=== PATIENT | male | born 1990 | race Two or more races ===

== ENCOUNTER 2024-06-23 16:40 | Emergency (ER) | payer OTHER ==
[~2024-06-23] VITALS: Ht 180.3 cm; Wt 97.2 kg
--- NOTE | 2024-06-23 17:28 | ED.PDOC ---
HPI Comments 34-year-old male with no pertinent past medical history, presents to ED for dog bites x1 hour ago with no other associated symptoms. Patient reports that he was breaking a fight between his two dogs and he got bit on his right wrist as well as his right posterior leg. Patient denies any numbness or tingling. He denies any fever, chills, nausea, vomiting. He currently rates his pain as 6/10 in severity. No alleviating or aggravating factors. He states that his last tetanus was within 10 years. His dog is up-to-date with all vaccinations. Chief Complaint: Laceration Time Seen by MD: 16:43 Primary Care Provider: NONE Reviewed Notes: Nurses Notes, Medications, Allergies Allergies: Coded Allergies: NO KNOWN ALLERGIES (Unverified , 06/23/24) Mode of Arrival: Ambulatory Complexity: Simple Laceration Length (cm): 2 Skin Type: Linear Past Medical History PAST MEDICAL HISTORY: Denies Surgical History: Denies all surgeries Family History Family History: Reviewed,noncontributory to illness Social History Smoker: Non-Smoker Alcohol: Denies ETOH Use Drugs: Denies Drug Use Constitutional: denies: chills, diaphoresis, fatigue, fever, malaise, sweats, weakness, others EENTM: denies: blurred vision, double vision, ear bleeding, ear discharge, ear drainage, ear pain, ear ringing, eye pain, eye redness, hearing loss, mouth pain, mouth swelling, nasal discharge, nose bleeding, nose congestion, nose pain, photophobia, tearing, throat pain, throat swelling, voice changes, others Respiratory: denies: cough, hemoptysis, orthopnea, SOB at rest, shortness of breath, SOB with excertion, stridor, wheezing, others Cardiovascular: denies: chest pain, dizzy spells, diaphoresis, Dyspnea on exertion, edema, irregular heart beat, left arm pain, lightheadedness, palpitations, PND, syncope, others Gastrointestinal: denies: abdomen distended, abdominal pain, blood streaked bowels, constipated, diarrhea, dysphagia, difficulty swallowing, hematemesis, melena, nausea, poor appetite, poor fluid intake, rectal bleeding, rectal pain, vomiting, others Genitourinary: denies: burning, dysuria, flank pain, frequency, hematuria, incontinence, penile discharge, penile sore, pain, testicle pain, testicle swelling, urgency, others Neurological: denies: dizziness, fainting, headache, left sided numbness, left sided weakness, numbness, paresthesia, pre-existing deficit, right sided numbn ess, right sided weakness, seizure, speech problems, tingling, tremors, weakness, others Musculoskeletal: reports: joint pain, joint swelling; denies: back pain, gout, muscle pain, muscle stiffness, neck pain, others Integumetry: reports: laceration; denies: bruises, change in color, change in hair/nails, dryness, lesions, lumps, rash, wounds, others Allergic/Immunocompromised: denies: Difficulty Healing, Frequent Infections, Hives, Itching, others Hematologic/Lymphatic: denies: anemia, blood clots, easy bleeding, easy bruising, swollen glands, others Endocrine: denies: excessive hunger, excessive sweating, excessive thirst, excessive urination, flushing, intolerance to cold, intolerance to heat, unexplained weight gain, unexplained weight loss, others Psychiatric: denies: anxiety, bipolar disorder, depression, hopeless, panic disorder, schizophrenia, sleepless, suicidal, others All Other Systems: Reviewed and Negative Physical Exam General Appearance: No Apparent Distress, Normal HEENT: Normal ENT Inspection, Pharynx Normal, TMs Normal Neck: Full Range of Motion, Non-Tender, Normal, Normal Inspection Respiratory: Chest Non-Tender, Lungs Clear, No Accessory Muscle Use, No Respiratory Distress, Normal Breath Sounds Cardiovascular: No Edema, No JVD, No Murmur, No Gallop, Normal Peripheral Pulses, Regular Rate/Rhythm Breast Exam: Deferred Gastrointestinal: No Organomegaly, Non Tender, No Pulsatile Mass, Normal Bowel Sounds, Soft Genitalia: Deferred Pelvic: Deferred Rectal: Deferred Extremities: No calf tenderness, Normal capillary refill, Normal inspection, Normal range of motion, Non-tender, No pedal edema Musculoskeletal : Apperance: Normal Neurologic: Alert, revenue inspector II-XII nml as Tested, No Motor Deficits, Normal Affect, Normal Mood, No Sensory Deficits Cerebellar Function: Normal Reflexes: Normal Skin: Dry, Lacerations (Approximately 2 x 2 cm laceration to the right distal posterior leg. One puncture wound noted to the anterior distal leg), Normal Color, Warm, Wounds (Multiple abrasions noted to the right wrist with two puncture wounds.) Lymphatic: No Adenopathy Was a procedure done? Was a procedure done?: Yes Sedation Sedation?: No Laceration Repair : Location Right lower leg Length 2cm Anesthetic: Lidocaine Laceration Repair Prep: Saline Laceration Repair Wound Comple: epidermis/dermis repair Laceration Repair: Number of sutures (2), Nylon Informed consent obtained: Yes Risks, benefits, and alternati: Yes Notes The laceration was prepared in a sterile manner. Betadine was used to clean the surrounding region. Laceration itself was thoroughly irrigated with normal saline. Approximately 4 cc of lidocaine was used for regional anesthesia. La ceration was loosely approximated using two 4-0 nylon sutures. The laceration was not fully closed due to risk of infection due to dog bite. Patient tolerated procedure well without any complications. Differential diagnosis Generic Laceration: Tendon Injury, Abrasion/Contusion, Laceration, Avulsion X-Ray, Labs, Meds, VS Vital Signs Date Time Temp Pulse Resp B/P (MAP) Pulse Ox O2 Delivery O2 Flow Rate FiO2 06/23/24 16:56 97.5 90 15 142/93 (109) 94 X-Ray, Labs, Meds, VS Comment MDM: Patient with history as above presented with laceration. History obtained from patient. Patient was nontoxic, stable, afebrile, ambulatory, no acute distress. Exam as above. Exam reassuring against acute infection or surgical pathology. Reviewed external records. Differential diagnosis considered. Overall presentation is consistent with simple laceration. Low suspicion for foreign body, open fracture, infection, tendon injury, neurovascular injury. Laceration repair was done by me as described above, with improvement in symptoms. Patient was given post-laceration repair instructions. Keep the area dry for the next 24 hours. Avoid vigorously scrubbing the area afterwards and avoid excessive movement of the affected area. Follow up with PCP, urgent care, or return to the ED for removal of sutures in 10 days. Return to the ED sooner if any signs or symptoms of infection, including fever, drainage from the wound, increased redness, swelling, or pain. Tetanus was up-to-date. Consideration was given for admission, but the patient was stable for outpatient management. Prescribed Augmentin for dog bite. Disposition: Discussed the need to follow up diagnostics, including incidental findings. Discharged the patient with instructions to obtain outpatient follow up of today's symptoms and findings, with strict return precautions if patient develops new or worsening symptoms. This medical document was created using the [employer] dictation system. Although this document has been carefully reviewed, there may still be some phonetic and typographical errors, which are due to imperfections of the software program, and do not reflect any compromise in the patient's medical care. Time of 1ST Reevaluation: 17:45 Reevaluation 1ST: Improved Patient Education/Counseling: Diagnosis, Treatment, Prognosis, Need For Follow Up Family Education/Counseling: No Family Present Departure 1 Departure Time of Disposition: 17:27 Impression: Primary Impression: Dog bite Qualified Codes: W54.0XXA - Bitten by dog, initial encounter Additional Impression: Leg laceration Qualified Codes: S81.811A - Laceration without foreign body, right lower leg, initial encounter Disposition: HOME / SELF CARE / HOMELESS Condition: Fair e-Prescriptions Amoxicillin & Pot Clavulanate (AUGMENTIN TABLET) 875 Mg Tb 875 MG PO BID for 7 Days, #14 TAB Prov: CELENA TAPIA 06/23/24 Critical Care Note Critical Care Time?: No Stability Stability form required: No Heart Score Heart Score: Heart Score Response (Comments) Value History N/A 0 EKG N/A 0 Age N/A 0 Risk Factors N/A 0 Troponin N/A 0 Total 0 CELENA TAPIA Jun 23, 2024 17:28
[2024-06-23] MEDS ORDERED: AUG875T PO (17:40)
[2024-06-23 21:41] VITALS: BP 122/76; PULSE 72; RESP 20; TEMP 97.5; O2SAT 96
== END 2024-06-23 21:43 | disposition home or self-care (01) ==
LOC: ER 16:40
DX: S81.811A Laceration without foreign body, right lower leg, initial encounter (principal); W54.0XXA Bitten by dog, initial encounter; Y93.89 Activity, other specified; Y92.89 Other specified places as the place of occurrence of the external cause; Y99.8 Other external cause status
CPT/HCPCS: 12001